=== PATIENT | female | born 1935 | race Caucasian/White ===

== ENCOUNTER 2019-03-03 08:56 | Inpatient (IN) | payer MEDICARE, OTHER ==
[2019-02-19 15:42] LABS: BASOPHILS # (AUTO) 0.1 X10'3 (0-0.2); BASOPHILS % (AUTO) 1.1 % (0-1); EOSINOPHILS # (AUTO) 0.2 X10'3 (0-0.9); EOSINOPHILS % (AUTO) 2.6 % (0-6); LYMPHOCYTES # (AUTO) 1.6 X10'3 (1.1-4.8); LYMPHOCYTES % (AUTO) 18.1 % (21-51); MEAN CORPUSCULAR HEMOGLOBIN 31.5 PG (27.0-31.0); MEAN CORPUSCULAR HGB CONC 33.4 g/dL (33.0-36.5); MEAN CORPUSCULAR VOLUME 94.1 FL (78-98); MEAN PLATELET VOLUME 8.2 FL (7.4-10.4); MONOCYTES # (AUTO) 0.6 X10'3 (0-0.9); MONOCYTES % (AUTO) 6.9 % (2-12); NEUTROPHILS # (AUTO) 6.5 X10'3 (1.8-7.7); NEUTROPHILS % (AUTO) 71.3 % (42-75); PRE OP HEMATOCRIT 40.4 % (35.0-45.0); PRE OP HEMOGLOBIN 13.5 g/dL (12.0-16.0); PRE OP PLATELET COUNT 368 X10'3 (140-440); RED CELL DISTRIBUTION WIDTH 14.5 % (11.5-14.5)
[2019-02-19 15:56] LABS: ALBUMIN 3.6 G/DL (3.4-5.0); ALKALINE PHOSPHATASE 90 IU/L (46-116); BLOOD UREA NITROGEN 14 MG/DL (7-18); BUN/CREATININE RATIO 18.2 (6.6-38.0); CALCIUM 8.9 MG/DL (8.5-10.1); CHLORIDE 107 MMOL/L (99-107); CREATININE 0.77 MG/DL (0.40-0.90); PRE OP ALT 17 U/L (30-65); PRE OP ANION GAP 11 (8-16); PRE OP AST 23 U/L (10-37); PRE OP BILIRUB, TOTAL 0.3 MG/DL (0.0-1.0); PRE OP GLUCOSE 88 MG/DL (70-104); PRE OP POTASSIUM 4.1 MMOL/L (3.4-5.1); PRE OP SODIUM 141 MMOL/L (135-145); TOTAL CARBON DIOXIDE 22.7 MMOL/L (24-32); TOTAL PROTEIN 7.2 G/DL (6.4-8.2); eGFR 71 ML/MIN
[2019-02-19 16:17] LABS: PRE OP PROTIME 10.1 SECONDS (9.0-12.0)
[2019-03-03] VITALS (19 sets, daily range): BP systolic 106–169; BP diastolic 36–98
[~2019-03-03] VITALS: Ht 144.8 cm; Wt 47.9 kg
[~2019-03-03 08:56] MED LIST: ASPI-12 PO; LISI10TA4 PO; ceFAZolin 1000mg inj ONE
[2019-03-03] MEDS ORDERED: VANCOMYCIN INJ 1000 MG in NORMAL SALINE 250ml IV.SOLN IV ONE (09:00)
[2019-03-03] MEDS ORDERED: famotidine 20mg tablet PO ONE (09:00)
[2019-03-03] MEDS ORDERED: cefazolin/dext.iso 2gm/100 ML IV ONE (09:00)
[2019-03-03] MEDS ORDERED: ringers solution, lacted 1,000 ML IV SCH ×2 (09:00→11:59)
[2019-03-03] MEDS ORDERED: tranexamic acid inj. 1,000 MG in normal saline 100 ML IV ONE (09:00)
[2019-03-03] MEDS ORDERED: ACET-812 PO (09:51)
[2019-03-03] MEDS ORDERED: tetracaine 1% (10mg/ml) pres. free inj. ONE (10:53)
[2019-03-03] MEDS ORDERED: fentaNYL/PF 50MCG/1 ML 2ML syringe ONE (10:55)
[2019-03-03] MEDS ORDERED: MIDAZolam 5mg/5ml vial ONE (10:55)
[2019-03-03] MEDS ORDERED: propofol inj 20 ML IV ONE (11:36)
[2019-03-03] MEDS ORDERED: ondansetron/PF 4mg/2ml inj IV PRN (12:00)
[2019-03-03] MEDS ORDERED: proCHLORperazine 10 MG/2 ml inj IV PRN (12:00)
[2019-03-03] MEDS ORDERED: morphine 4 MG/ML inj SYRINge IV PRN ×2 (12:00)
[2019-03-03] MEDS ORDERED: meperidine/PF 25mg/ml syringe IV PRN ×3 (12:00)
--- NOTE | 2019-03-03 13:20 | NUR ---
ADMITTED TO PACU FROM OR ACCOMPANIED BY ANESTHESIA. INTIAL PHYSICAL ASSESSMENT DONE AND RECORDED. AWAKE AND RESPONSE ON ARRIVE YO PACU, REPORT RECEIVED FROM ANESTHESIA.
[2019-03-03] MEDS ORDERED: bisacodyl 10mg suppository rectal RC PRN (13:35)
[2019-03-03] MEDS ORDERED: HYDROmorphone inj. 0.5 MG/0.5 ML DISP.SYRIN IV PRN (13:35)
[2019-03-03] MEDS ORDERED: diphenhydrAMINE 25mg capsule PO PRN ×2 (13:35)
[2019-03-03] MEDS ORDERED: magnesium hydroxide 30ml (MOM) UD suspension PO PRN (13:35)
[2019-03-03] MEDS ORDERED: acetaminophen 325mg tablet PO PRN (13:35)
[2019-03-03] MEDS ORDERED: HYDROcodone/acetaminophen 10/325mg tab PO PRN (13:35)
--- NOTE | 2019-03-03 14:40 | NUR ---
PACU DISCHARGE CRITERIA MET, REPORT GIVEN TO FLOOR. DENIES PAIN OR DISCOMFORT, TRANSFERRED TO ROOM IN STABLE GOOD CONDITION.
--- NOTE | 2019-03-03 14:57 | NUR ---
Received from PACU in stable condition. Oriented to room, unit, and plan of care. SCD's placed on pt. Educated regarding incentive spirometer. JASWINDER dressing to right hip along with ice pack. Rates pain 0/10.
[2019-03-03] MEDS: potassium Cl 20mEq in NS 1,000 ML IV SCH ×2 (15:14→21:20)
[2019-03-03] MEDS: ceFAZolin 1GM/D5W- ADD-VANTAGE 50 ML IV SCH (15:14)
[2019-03-03] MEDS: HYDROcodone/acetaminophen 10/325mg tab PO PRN (15:59)
[2019-03-03] MEDS: aspirin 81mg tab.chew PO SCH (16:49)
[2019-03-03] MEDS: ondansetron/PF 4mg/2ml inj IV PRN (17:21)
--- NOTE | 2019-03-03 18:24 | NUR ---
Problems reprioritized. Patient report given, questions answered & plan of care reviewed with LAURA.
[2019-03-03] MEDS ORDERED: vancomycin/NS 1 GM ADD-VANTAGE 250 ML IV SCH (20:00)
[2019-03-03] MEDS: sennosides 8.6mg tablet PO SCH (21:19)
[2019-03-04] VITALS (9 sets, daily range): BP systolic 86–145; BP diastolic 35–65
[2019-03-04] MEDS: ceFAZolin 1GM/D5W- ADD-VANTAGE 50 ML IV SCH (00:16)
[2019-03-04] MEDS: HYDROcodone/acetaminophen 10/325mg tab PO PRN ×3 (00:17→16:12)
[2019-03-04 06:06] LABS: BASOPHILS % (AUTO) 0.3 % (0-1); EOSINOPHILS # (AUTO) 0.1 X10'3 (0-0.9); EOSINOPHILS % (AUTO) 0.7 % (0-6); HEMATOCRIT 32.4 % (35.0-45.0); HEMOGLOBIN 11.1 g/dl (12.0-16.0); LYMPHOCYTES % (AUTO) 9.6 % (21-51); MEAN CORPUSCULAR HEMOGLOBIN 32.1 PG (27.0-31.0); MEAN CORPUSCULAR HGB CONC 34.1 g/dL (33.0-36.5); MEAN CORPUSCULAR VOLUME 94.2 FL (78-98); MEAN PLATELET VOLUME 8.5 FL (7.4-10.4); MONOCYTES # (AUTO) 0.7 X10'3 (0-0.9); MONOCYTES % (AUTO) 6.9 % (2-12); NEUTROPHILS # (AUTO) 8.4 X10'3 (1.8-7.7); NEUTROPHILS % (AUTO) 82.5 % (42-75); PLATELET COUNT 258 X10'3 (140-440); RED BLOOD COUNT 3.44 X10'6 (4.20-5.60); RED CELL DISTRIBUTION WIDTH 14.6 % (11.5-14.5); WHITE BLOOD COUNT 10.2 X10'3 (4.5-11.0)
[2019-03-04 06:14] LABS: ALANINE AMINOTRANSFERASE 24 U/L (12-78); ALBUMIN 2.4 G/DL (3.4-5.0); ALBUMIN/GLOBULIN RATIO 0.9 (1.1-1.5); ALKALINE PHOSPHATASE 61 IU/L (46-116); ANION GAP 8 (8-16); ASPARTATE AMINO TRANSFERASE 25 U/L (10-37); BILIRUBIN,TOTAL 0.5 MG/DL (0.1-1.0); BLOOD UREA NITROGEN 5 MG/DL (7-18); BUN/CREATININE RATIO 8.8 (6.6-38.0); CALCIUM 7.8 MG/DL (8.5-10.1); CHLORIDE 102 MMOL/L (99-107); CREATININE 0.57 MG/DL (0.40-0.90); GLUCOSE 125 MG/DL (70-104); POTASSIUM 4.2 MMOL/L (3.5-5.1); SODIUM 135 MMOL/L (135-145); TOTAL PROTEIN 5.2 G/DL (6.4-8.2); eGFR > 90 ML/MIN
--- NOTE | 2019-03-04 06:21 | NUR ---
Report given to jos Earl.
--- NOTE | 2019-03-04 06:43 | NUR ---
Patient in room [facility]22. I have received report from Lucy DAVIS and had the opportunity to ask questions and assume patient care.
[2019-03-04] MEDS: aspirin 81mg tab.chew PO SCH ×2 (08:00→16:53)
[2019-03-04] MEDS ORDERED: lisinopril 10 MG tablet PO SCH (08:00)
[2019-03-04] MEDS: ondansetron/PF 4mg/2ml inj IV PRN (09:01)
--- NOTE | 2019-03-04 16:04 | NUR ---
Joint replacement consult: Pt seen by RD for written/verbal high protein ed. RD reviewed high protein needs for wound healing, immune strength, high protein foods, and protein supplementation options. RD contact information provided in case of further questions. Pt reports some nausea/vomiting post-op and agrees to cottage cheese w/ pears at breakfast; dietary notified. Will continue to monitor. Addendum: 03/04/19 at [address] Amended: Links added.
--- NOTE | 2019-03-04 18:40 | NUR ---
Problems reprioritized. Patient report given, questions answered & plan of care reviewed with Сергей DAVIS.
--- NOTE | 2019-03-04 20:30 | NUR ---
called Dr. Shah due to pt's low BP. asymptomatic, all other VS stable. orders received for changing fluids and rate, adding toradol x4 doses, giving only 1 norco if needed, and holding BP meds until BP stable. will check H/H in am. no bleeding noted.
[2019-03-04] MEDS: sennosides 8.6mg tablet PO SCH (21:12)
[2019-03-04] MEDS: normal saline 1000ml 1,000 ML IV SCH (21:12)
[2019-03-04] MEDS: ketorolac tromethamine 15mg/ml inj. IV SCH (21:12)
[2019-03-05] MEDS: ketorolac tromethamine 15mg/ml inj. IV SCH ×3 (01:54→14:00)
[2019-03-05 01:59] VITALS: BP 112/43
[2019-03-05] MEDS: HYDROcodone/acetaminophen 10/325mg tab PO PRN ×3 (05:10→17:20)
[2019-03-05 06:00] VITALS: BP 120/56
[2019-03-05 06:09] LABS: ALANINE AMINOTRANSFERASE 22 U/L (12-78); ALBUMIN 2.1 G/DL (3.4-5.0); ALBUMIN/GLOBULIN RATIO 0.7 (1.1-1.5); ALKALINE PHOSPHATASE 64 IU/L (46-116); ANION GAP 6 (8-16); ASPARTATE AMINO TRANSFERASE 25 U/L (10-37); BILIRUBIN,TOTAL 0.5 MG/DL (0.1-1.0); BLOOD UREA NITROGEN 8 MG/DL (7-18); BUN/CREATININE RATIO 11.3 (6.6-38.0); CALCIUM 7.6 MG/DL (8.5-10.1); CHLORIDE 107 MMOL/L (99-107); CREATININE 0.71 MG/DL (0.40-0.90); GLUCOSE 107 MG/DL (70-104); POTASSIUM 4.3 MMOL/L (3.5-5.1); SODIUM 138 MMOL/L (135-145); TOTAL CARBON DIOXIDE 24.9 MMOL/L (24-32); TOTAL PROTEIN 5.1 G/DL (6.4-8.2); eGFR 78 ML/MIN
--- NOTE | 2019-03-05 06:22 | NUR ---
reported to days. noted pt ready to work with PT this am.
[2019-03-05 06:51] LABS: BASOPHILS % (AUTO) 0.2 % (0-1); EOSINOPHILS # (AUTO) 0.2 X10'3 (0-0.9); EOSINOPHILS % (AUTO) 1.7 % (0-6); HEMATOCRIT 29.7 % (35.0-45.0); HEMOGLOBIN 10.2 g/dl (12.0-16.0); LYMPHOCYTES % (AUTO) 9.5 % (21-51); MEAN CORPUSCULAR HEMOGLOBIN 32.1 PG (27.0-31.0); MEAN CORPUSCULAR HGB CONC 34.2 g/dL (33.0-36.5); MONOCYTES # (AUTO) 0.8 X10'3 (0-0.9); MONOCYTES % (AUTO) 7.4 % (2-12); NEUTROPHILS # (AUTO) 8.9 X10'3 (1.8-7.7); NEUTROPHILS % (AUTO) 81.2 % (42-75); PLATELET COUNT 233 X10'3 (140-440); RED BLOOD COUNT 3.16 X10'6 (4.20-5.60); RED CELL DISTRIBUTION WIDTH 14.7 % (11.5-14.5); WHITE BLOOD COUNT 10.9 X10'3 (4.5-11.0)
[2019-03-05] MEDS: normal saline 1000ml 1,000 ML IV SCH ×2 (09:38→16:25)
[2019-03-05 10:00] VITALS: BP 103/40
[2019-03-05 18:30] VITALS: BP 115/45
--- NOTE | 2019-03-05 18:36 | NUR ---
Problems reprioritized. Patient report given, questions answered & plan of care reviewed with Fe DAVIS.
[2019-03-05] MEDS: aspirin 81mg tab.chew PO SCH (20:53)
[2019-03-05] MEDS: sennosides 8.6mg tablet PO SCH (20:54)
[2019-03-05 22:00] VITALS: BP 115/56
[2019-03-06] MEDS: normal saline 1000ml 1,000 ML IV SCH (02:25)
[2019-03-06] MEDS: HYDROcodone/acetaminophen 10/325mg tab PO PRN (03:46)
[2019-03-06 05:31] LABS: BASOPHILS % (AUTO) 0.2 % (0-1); EOSINOPHILS # (AUTO) 0.4 X10'3 (0-0.9); EOSINOPHILS % (AUTO) 3.7 % (0-6); HEMATOCRIT 28.4 % (35.0-45.0); HEMOGLOBIN 9.6 g/dl (12.0-16.0); LYMPHOCYTES % (AUTO) 8.7 % (21-51); MEAN CORPUSCULAR HEMOGLOBIN 31.8 PG (27.0-31.0); MEAN CORPUSCULAR HGB CONC 33.8 g/dL (33.0-36.5); MEAN PLATELET VOLUME 8.6 FL (7.4-10.4); MONOCYTES # (AUTO) 0.8 X10'3 (0-0.9); MONOCYTES % (AUTO) 7.2 % (2-12); NEUTROPHILS # (AUTO) 9.1 X10'3 (1.8-7.7); NEUTROPHILS % (AUTO) 80.2 % (42-75); PLATELET COUNT 240 X10'3 (140-440); RED BLOOD COUNT 3.02 X10'6 (4.20-5.60); RED CELL DISTRIBUTION WIDTH 14.6 % (11.5-14.5); WHITE BLOOD COUNT 11.4 X10'3 (4.5-11.0)
[2019-03-06 05:44] LABS: ALANINE AMINOTRANSFERASE 21 U/L (12-78); ALBUMIN 1.9 G/DL (3.4-5.0); ALBUMIN/GLOBULIN RATIO 0.6 (1.1-1.5); ALKALINE PHOSPHATASE 82 IU/L (46-116); ANION GAP 5 (8-16); ASPARTATE AMINO TRANSFERASE 24 U/L (10-37); BILIRUBIN,TOTAL 0.4 MG/DL (0.1-1.0); BLOOD UREA NITROGEN 6 MG/DL (7-18); BUN/CREATININE RATIO 9.8 (6.6-38.0); CHLORIDE 106 MMOL/L (99-107); CREATININE 0.61 MG/DL (0.40-0.90); GLUCOSE 104 MG/DL (70-104); POTASSIUM 4.1 MMOL/L (3.5-5.1); SODIUM 138 MMOL/L (135-145); TOTAL CARBON DIOXIDE 26.6 MMOL/L (24-32); TOTAL PROTEIN 5.2 G/DL (6.4-8.2); eGFR > 90 ML/MIN
[2019-03-06 06:00] VITALS: BP 131/61
--- NOTE | 2019-03-06 06:30 | NUR ---
Patient in room [facility] 4022. I have received report from Fe DAVIS and had the opportunity to ask questions and assume patient care.
[2019-03-06] MEDS: aspirin 81mg tab.chew PO SCH (07:36)
[2019-03-06 10:00] VITALS: BP 121/56
--- NOTE | 2019-03-06 11:00 | NUR ---
Patient discharged home today with daughter. All discharge instructions given to patient and daughter. Prescriptions given to patient.
== END 2019-03-06 11:00 | disposition home or self-care (01) | DRG 470 ==
LOC: PAS IN 08:56 → EDSTATUS 11:00 → ORTHO 4S 15:00
PROVIDERS: ADMIT Orthopaedic Surgery; ATTEND Orthopaedic Surgery
PROC: 0SR9069 Replacement of Right Hip Joint with Oxidized Zirconium on Polyethylene Synthetic Substitute, Cemented, Open Approach (ICD-10-PCS; principal; 2019-03-03 10:51)
DX: M16.11 Unilateral primary osteoarthritis, right hip (principal); D62 Acute posthemorrhagic anemia; I10 Essential (primary) hypertension; Z96.642 Presence of left artificial hip joint; F17.210 Nicotine dependence, cigarettes, uncomplicated; Z88.5 Allergy status to narcotic agent
CPT/HCPCS: 36415; 80053; 82948; 85025; 85610; 85730; 86885; 86900; 86901; 86920; 87081; 97110; 97116; 97162; 97530; A7000; C1713; C1776; G0378; J0690; J1170; J1885; J2250; J2405; J2704; J3010; J3370; J3480; J7030; J7120